=== PATIENT | female | born 2000 | race American Indian/Alaskan Native ===

== ENCOUNTER 2020-05-10 22:07 | Emergency (ER) | payer OTHER ==
[2020-05-11 00:55] LABS: Basophils # (Auto) 0.1 K/mm3 (0.0-0.1); Basophils % (Auto) 0.4 % (0.0-1.8); Eosinophils # (Auto) 0.1 K/mm3 (0.0-0.4); Eosinophils % (Auto) 1.1 % (0.0-4.3); Hematocrit 41.3 % (30.3-42.9); Hemoglobin 13.7 gm/dl (10.1-14.3); Lymphocytes # (Auto) 2.1 K/mm3 (1.2-5.4); Lymphocytes % (Auto) 18.4 % (13.4-35.0); Mean Corpuscular HGB Conc 33 % (30-34); Mean Corpuscular Volume 87 fl (79-97); Monocytes # (Auto) 0.6 K/mm3 (0.0-0.8); Monocytes % (Auto) 5.3 % (0.0-7.3); Platelet Count 374 K/mm3 (140-440); Red Blood Count 4.76 M/mm3 (3.65-5.03); Red Cell Distribution Width 14.8 % (13.2-15.2)
[2020-05-11 01:15] LABS: Alanine Aminotransferase 17 units/L (7-56); Albumin 4.2 g/dL (3.9-5); BUN/Creatinine Ratio 15; Blood Urea Nitrogen 12 mg/dL (7-17); Hemolysis Index 5
[2020-05-11 01:59] LABS: Bacteria,Urine 2+ /HPF (Negative); Bilirubin,Urine NEG (Negative); Blood,Urine LG (Negative); Color,Urine Yellow (Yellow); Mucus,Urine 3+ /HPF; Protein,Urine <15 mg/dL mg/dL (Negative); Urobilinogen,Urine < 2.0 mg/dL (<2.0)
--- NOTE | 2020-05-11 02:52 | Emergency Department Report ---
ED General Adult HPI - General Chief complaint: Abdominal Pain Stated complaint: ABD PAIN PUI?: No Time Seen by Provider: 05/11/20 02:29 Source: patient, EMS, RN notes reviewed Mode of arrival: Ambulatory Limitations: No Limitations - History of Present Illness Initial comments: The patient was evaluated in the emergency department for symptoms described in the history of present illness. He/she was evaluated in the context of the global COVID-19 pandemic, which necessitated consideration that the patient might be at risk for infection with the virus that causes COVID-19. Institutional protocols and algorithms that pertain to the evaluation of patients at risk for COVID-19 are in a state of rapid change based on infor mation released by regulatory bodies including the CDC and federal and state organizations. These policies and algorithms were followed during the patient's care in the emergency department. Please note that these policies, procedures and recommendations changed on a rapid basis. The patient is a 19-year-old obese female. She is not known to myself previously. She states that she is not . The patient reports that she has been feeling anxious and stressed recently, and has thus been consuming quite a bit of heavy, spicy, fatty foods. She was eating chili, ice cream, and cookie dough, earlier on this evening, when she developed severe right upper quadrant abdominal pain, with nausea, vomiting, now resolved. The patient states she is not had this in the past. She states she is currently on her menstruation. She denies dysuria. She denies headache, neck pain, chest pain, she has no abdominal pain at this time, she has no shortness of breath, she denies history of gonorrhea, chlamydia, STDs, vaginal discharge. She does not have a history of renal colic or biliary colic that she is aware of. She states all of her symptoms are resolved at this point in time. She states that now, she has no complaints. She declines pain medication, nausea medication. -: Sudden Location: abdomen Radiation: back Quality: stabbing, aching Consistency: now resolved Improves with: none Worsens with: eating - Related Data Previous Rx's Medication Instructions Recorded Last Taken Type Acetaminophen [Non-Aspirin Extra 500 mg PO Q6HR PRN #30 tablet 05/11/20 Unknown Rx Strength] Famotidine [Pepcid] 20 mg PO BID #60 tablet 05/11/20 Unknown Rx Ondansetron [Zofran Odt] 4 mg PO Q8HR PRN #20 tab.rapdis 05/11/20 Unknown Rx Allergies Allergy/AdvReac Type Severity Reaction Status Date / Time No Known Allergies Allergy Unverified 05/11/20 00:02 ED Review of Systems ROS: Stated complaint: ABD PAIN Other details as noted in HPI Constitutional: denies: fever, malaise Eyes: denies: eye discharge ENT: denies: congestion Respiratory: denies: shortness of breath Cardiovascular: denies: chest pain Gastrointestinal: abdominal pain, nausea, vomiting Genitourinary: denies: dysuria, frequency Musculoskeletal: back pain (Chronic paralumbar back pain) Neurological: denies: weakness Psychiatric: anxiety Hematological/Lymphatic: denies: easy bleeding ED Past Medical Hx - Past Medical History Previous Medical History?: No - Surgical History Past Surgical History?: Yes Additional Surgical History: Tonsilectomy - Social History Smoking Status: Never Smoker - Medications Home Medications: Home Medications Medication Instructions Recorded Confirmed Last Taken Type Acetaminophen [Non-Aspirin Extra 500 mg PO Q6HR PRN #30 tablet 05/11/20 Unknown Rx Strength] Famotidine [Pepcid] 20 mg PO BID #60 tablet 05/11/20 Unknown Rx Ondansetron [Zofran Odt] 4 mg PO Q8HR PRN #20 tab.rapdis 05/11/20 Unknown Rx ED Physical Exam - General Limitations: No Limitations General appearance: alert, anxious, obese - Head Head exam: Present: atraumatic, normocephalic - Eye Eye exam: Present: normal appearance, EOMI. Absent: nystagmus - ENT ENT exam: Present: normal exam, normal orophraynx, mucous membranes moist, normal external ear exam - Neck Neck exam: Present: normal inspection, full ROM. Absent: tenderness, meningismus - Respiratory Respiratory exam: Present: normal lung sounds bilaterally. Absent: respiratory distress, wheezes, rales, rhonchi, stridor - Cardiovascular Cardiovascular Exam: Present: regular rate, normal rhythm, normal heart sounds. Absent: bradycardia, tachycardia, irregular rhythm, systolic murmur, diastolic murmur, rubs, gallop - GI/Abdominal GI/Abdominal exam: Present: soft, tenderness (There is right upper quadrant tenderness to deep palpation. There is a negative Hay sign of the right upper quadrant). Absent: distended, guarding, rebound, rigid, pulsatile mass - Extremities Exam Extremities exam: Present: normal inspection, full ROM, other (2+ pulses noted in the bilateral upper and lower extremities. There is no palpable cord. negative Homans sign. Muscular compartments are soft. The pelvis is stable.). Absent: pedal edema, calf tenderness - Back Exam Back exam: Present: normal inspection, full ROM. Absent: tenderness, CVA tenderness (R), CVA tenderness (L), paraspinal tenderness, vertebral tenderness - Neurological Exam Neurological exam: Present: alert, normal gait, other (No facial droop. Tongue midline. Extraocular movements intact bilaterally. Facial sensation intact to light touch in V1, V2, V3 distribution bilaterally. 5 and a 5 strength in 4 extremities. Sensation intact to light touch in 4 extremities.). Absent: motor sensory deficit - Psychiatric Psychiatric exam: Present: normal affect, normal mood - Skin Skin exam: Present: warm, dry, intact, normal color. Absent: rash ED Course Vital Signs 05/11/20 05/11/20 05/11/20 00:06 03:02 03:04 Temperature 98.2 F 99.1 F Pulse Rate 101 H 108 H Respiratory 17 20 Rate Blood Pressure 154/74 122/60 Blood Pressure 122/60 [Right] O2 Sat by Pulse 99 98 Oximetry 05/11/20 05/11/20 05/11/20 03:15 03:30 03:45 Temperature Pulse Rate Respiratory Rate Blood Pressure 124/68 86/41 149/44 Blood Pressure [Right] O2 Sat by Pulse 100 93 Oximetry 05/11/20 04:00 Temperature Pulse Rate Respiratory Rate Blood Pressure 129/71 Blood Pressure [Right] O2 Sat by Pulse 99 Oximetry - Reevaluation(s) Reevaluation #1: 05/11/20 04:10 Differential diagnosis, including but not limited to: Biliary colic, renal colic Assessment and plan: 19-year-old obese female, with resolved tachycardia, with right upper quadrant abdominal pain, with associated nausea, vomiting, now resolved, in the context of eating heavy/fatty foods, with mild right upper quadrant tenderness on deep palpation, otherwise, symptoms have resolved at this time. No irritative or obstructive urinary symptoms, no dysuria, initial urinalysis contaminated, repeat urinalysis not consistent with infectious pathology. Right upper quadrant ultrasound, renal ultrasound pending. I suspect biliary colic is the most likely diagnosis. Patient and I discussed the need to avoid heavy and spicy foods, fatty foods, diet, exercise, weight loss. Reevaluation #2: 05/11/20 04:56 The patient is reassessed. Upon entering the room, I see that she is sleeping comfortably, and in no acute distress. I awake the patient, her abdomen is soft on repeat exam, and she is noted to have consumed soda/maritza francesco. I discussed the patient's findings with the patient. We have advised diet and lifestyle modifications. She verbalizes understanding. Patient suitable for discharge at this point in time I did note that the patient was snoring quite loudly when I enter the room, and she is morbidly obese. She did not desaturate. However, she may have a component of sleep apnea. I will instruct her to follow-up with outpatient primary care/pulmonary for further evaluation heart rate at the time of discharge 99 to 101 bpm. 05/11/20 04:57 ED Medical Decision Making - Lab Data Result diagrams: 05/11/20 00:25 05/11/20 00:25 Vital Signs 05/11/20 05/11/20 00:06 03:04 Temperature 98.2 F 99.1 F Pulse Rate 101 H 108 H Respiratory 17 20 Rate Blood Pressure 154/74 Blood Pressure 122/60 [Right] O2 Sat by Pulse 99 98 Oximetry Lab Results 05/11/20 05/11/20 05/11/20 Range/Units 00:25 00:25 00:25 WBC 11.4 H (4.5-11.0) K/mm3 RBC 4.76 (3.65-5.03) M/mm3 Hgb 13.7 (10.1-14.3) gm/dl Hct 41.3 (30.3-42.9) % MCV 87 (79-97) fl MCH 29 (28-32) pg MCHC 33 (30-34) % RDW 14.8 (13.2-15.2) % Plt Count 374 (140-440) K/mm3 Lymph % (Auto) 18.4 (13.4-35.0) % [place] % (Auto) 5.3 (0.0-7.3) % Eos % (Auto) 1.1 (0.0-4.3) % Baso % (Auto) 0.4 (0.0-1.8) % Lymph # 2.1 (1.2-5.4) K/mm3 [place] # 0.6 (0.0-0.8) K/mm3 Eos # 0.1 (0.0-0.4) K/mm3 Baso # 0.1 (0.0-0.1) K/mm3 Seg Neutrophils % 74.8 H (40.0-70.0) % Seg Neutrophils # 8.5 H (1.8-7.7) K/mm3 Sodium 139 (137-145) mmol/L Potassium 3.9 (3.6-5.0) mmol/L Chloride 101.1 (98-107) mmol/L Carbon Dioxide 25 (22-30) mmol/L Anion Gap 17 mmol/L BUN 12 (7-17) mg/dL Creatinine 0.8 (0.6-1.2) mg/dL Estimated GFR > 60 ml/min BUN/Creatinine Ratio 15 % Glucose 115 H (65-100) mg/dL Calcium 10.0 (8.4-10.2) mg/dL Magnesium (1.7-2.3) mg/dL Total Bilirubin < 0.20 (0.1-1.2) mg/dL AST 20 (5-40) units/L ALT 17 (7-56) units/L Alkaline Phosphatase 82 (35-129) units/L Total Creatine Kinase (30-135) units/L Total Protein 8.4 H (6.3-8.2) g/dL Albumin 4.2 (3.9-5) g/dL Albumin/Globulin Ratio 1.0 % Lipase 26 (13-60) units/L HCG, Qual Negative (Negative) Urine Color (Yellow) Urine Turbidity (Clear) Urine pH (5.0-7.0) Ur Specific Sears (1.003-1.030) Urine Protein (Negative) mg/dL Urine Glucose (UA) (Negative) mg/dL Urine Ketones (Negative) mg/dL Urine Blood (Negative) Urine Nitrite (Negative) Urine Bilirubin (Negative) Urine Urobilinogen (<2.0) mg/dL Ur Leukocyte Esterase (Negative) Urine WBC (Auto) (0.0-6.0) /HPF Urine RBC (Auto) (0.0-6.0) /HPF U Epithel Cells (Auto) (0-13.0) /HPF Urine Bacteria (Auto) (Negative) /HPF Urine Mucus /HPF 05/11/20 05/11/20 Range/Units 01:15 02:50 WBC (4.5-11.0) K/mm3 RBC (3.65-5.03) M/mm3 Hgb (10.1-14.3) gm/dl Hct (30.3-42.9) % MCV (79-97) fl MCH (28-32) pg MCHC (30-34) % RDW (13.2-15.2) % Plt Count (140-440) K/mm3 Lymph % (Auto) (13.4-35.0) % [place] % (Auto) (0.0-7.3) % Eos % (Auto) (0.0-4.3) % Baso % (Auto) (0.0-1.8) % Lymph # (1.2-5.4) K/mm3 [place] # (0.0-0.8) K/mm3 Eos # (0.0-0.4) K/mm3 Baso # (0.0-0.1) K/mm3 Seg Neutrophils % (40.0-70.0) % Seg Neutrophils # (1.8-7.7) K/mm3 Sodium (137-145) mmol/L Potassium (3.6-5.0) mmol/L Chloride (98-107) mmol/L Carbon Dioxide (22-30) mmol/L Anion Gap mmol/L BUN (7-17) mg/dL Creatinine (0.6-1.2) mg/dL Estimated GFR ml/min BUN/Creatinine Ratio % Glucose (65-100) mg/dL Calcium (8.4-10.2) mg/dL Magnesium 2.10 (1.7-2.3) mg/dL Total Bilirubin (0.1-1.2) mg/dL AST (5-40) units/L ALT (7-56) units/L Alkaline Phosphatase (35-129) units/L Total Creatine Kinase 157 H (30-135) units/L Total Protein (6.3-8.2) g/dL Albumin (3.9-5) g/dL Albumin/Globulin Ratio % Lipase (13-60) units/L HCG, Qual (Negative) Urine Color Yellow (Yellow) Urine Turbidity Slightly-cloudy (Clear) Urine pH 6.0 (5.0-7.0) Ur Specific Sears 1.028 (1.003-1.030) Urine Protein <15 mg/dl (Negative) mg/dL Urine Glucose (UA) Neg (Negative) mg/dL Urine Ketones Neg (Negative) mg/dL Urine Blood Lg (Negative) Urine Nitrite Neg (Negative) Urine Bilirubin Neg (Negative) Urine Urobilinogen < 2.0 (<2.0) mg/dL Ur Leukocyte Esterase Tr (Negative) Urine WBC (Auto) 14.0 H (0.0-6.0) /HPF Urine RBC (Auto) 3.0 (0.0-6.0) /HPF U Epithel Cells (Auto) 14.0 H (0-13.0) /HPF Urine Bacteria (Auto) 2+ (Negative) /HPF Urine Mucus 3+ /HPF - EKG Data -: EKG Interpreted by Tn EKG shows normal: sinus rhythm Rate: tachycardia - EKG Data When compared to previous EKG there are: previous EKG unavailable 05/11/20 04:09 No prior EKGs available for comparison. Sinus rhythm, tachycardia, 100 bpm, normal axis, QTC 440 ms, not a STEMI. - Radiology Data Radiology results: pending, report reviewed, image reviewed Print Report Referring Physician: ALESIA ARROYO Patient Name: CAMILA SEVILLA Date of : 2000 Sex: Female Report Date: 2020-05-11 Report Status: Finalized Findings [facility] [address] [place] [address] Ultrasound Report Signed Patient: CAMILA SEVILLA MR#: [id number] : 2000 Acct:[id number] Age/Sex: 19 / F ADM Date: 05/10/20 Loc: ED Attending Dr: Ordering Physician: ALESIA ARROYO MD Date of Service: 05/11/20 Procedure(s): US renal RT Accession Number(s): [id number] cc: ALESIA ARROYO MD RIGHT RENAL ULTRASOUND HISTORY: Flank pain. FINDINGS: Right kidney measures 9.9 cm. Cortical thickness and echogenicity is normal. Negative for mass or obstruction. The bladder is unremarkable. IMPRESSION: Unremarkable right renal ultrasound. Signer Name: Damien Altman MD Signed: 05/11/2020 4:22 AM Workstation Name: [id number] Transcribed By: ELISA Dictated By: Damien Altman MD Electronically Authenticated By: Damien Altman MD Signed Date/Time: 05/11/20421 DD/ 0 TD/TT: Print Report Referring Physician: ALESIA ARROYO Patient Name: CAMILA SEVILLA Date of : 2000 Sex: Female Report Date: 2020-05-11 Report Status: [place] [address] Ultrasound Report Signed Patient: CAMILA SEVILLA MR#: [id number] : 2000 Acct:[id number] Age/Sex: 19 / F ADM Date: 05/10/20 Loc: ED Attending Dr: Ordering Physician: ALESIA ARROYO MD Date of Service: 05/11/20 Procedure(s): US abdomen limited Accession Number(s): [id number] cc: ALESIA ARROYO MD ULTRASOUND ABDOMEN, LIMITED (RIGHT UPPER QUADRANT) INDICATION: ruq pain. COMPARISON: None available. FINDINGS: Pancreas: Visualized portion shows no significant abnormality. Liver: Mild increased echogenicity. Gallbladder: Partially contracted. Bile ducts: Normal. Common Bile Duct measures 2 mm. Free fluid: None. Additional Findings: None. IMPRESSION: 1. Suspected fatty infiltration the liver. 2. Partially contracted gallbladder without stones or biliary dilatation. Signer Name: Damien Altman MD Signed: 05/11/2020 4:21 AM Workstation Name: [id number] Transcribed By: ELISA Dictated By: Damien Altman MD Electronically Authenticated By: Damien Altamn MD Signed Date/Time: 05/11/20420 DD/ 9 Critical care attestation.: If time is entered above; I have spent that time in minutes in the direct care of this critically ill patient, excluding procedure time. ED Disposition Clinical Impression: Abdominal pain, Obesity, Snoring Disposition: DC-01 TO HOME OR SELFCARE Is pt being admited?: No Does the pt Need Aspirin: No Condition: Stable Instructions: Biliary Colic (ED), Snoring (ED), Obesity (ED) Additional Instructions: Recommend that the patient avoid consumption of Motrin, ibuprofen, Naprosyn, Aleve, heavy, spicy foods, alcohol. Recommend that patient avoid consumption of complex carbohydrates, sugar, fatty foods, rich foods. Recommend that patient exercise, lose weight, and consume plenty of fiber, v egetables, and lean protein. We recommend that the patient follow-up with her primary care doctor, such as Dr. Taylor, within the next 7 days. Patient was found to be snoring in the emergency room, and she may have a component of sleep apnea. The patient should follow-up with a primary care do ctor, or pulmonology/sleep specialist for this, within the next 4 to 6 weeks, such as Dr. Hgigins Recommend that patient not drink soda, drink 4 to 6 cups of water per day indefinitely. Please return to the emergency room right away with new pain, worsening pain, migration of pain, projectile vomiting, change in mental status, confusion, inability to tolerate liquid feeds, new, worsened or different symptoms not present on the initial emergency room evaluation Referrals: JEB TAYLOR MD [Staff Physician] - 3-5 Days DONAVAN HIGGINS MD [Staff Physician] - as needed
[2020-05-11 03:40] LABS: Bilirubin,Urine NEG (Negative); Blood,Urine MOD (Negative); Color,Urine Yellow (Yellow); Mucus,Urine FEW /HPF; Protein,Urine <15 mg/dL mg/dL (Negative); Urobilinogen,Urine < 2.0 mg/dL (<2.0)
[2020-05-11] MEDS ORDERED: ACETAMINOPHEN 500 MG TAB PO ONE (04:09)
--- NOTE | 2020-05-11 04:25 | Ultrasound Report ---
ULTRASOUND ABDOMEN, LIMITED (RIGHT UPPER QUADRANT) INDICATION: ruq pain. COMPARISON: None available. FINDINGS: Pancreas: Visualized portion shows no significant abnormality. Liver: Mild increased echogenicity. Gallbladder: Partially contracted. Bile ducts: Normal. Common Bile Duct measures 2 mm. Free fluid: None. Additional Findings: None. IMPRESSION: 1. Suspected fatty infiltration the liver. 2. Partially contracted gallbladder without stones or biliary dilatation. Signer Name: Damien Altman MD Signed: 05/11/2020 4:21 AM Workstation Name: [id number]
--- NOTE | 2020-05-11 04:26 | Ultrasound Report ---
RIGHT RENAL ULTRASOUND HISTORY: Flank pain. FINDINGS: Right kidney measures 9.9 cm. Cortical thickness and echogenicity is normal. Negative for m ass or obstruction. The bladder is unremarkable. IMPRESSION: Unremarkable right renal ultrasound. Signer Name: Damien Altman MD Signed: 05/11/2020 4:22 AM Workstation Name: [id number]
[2020-05-11 06:09] VITALS: BP 109/55
== END 2020-05-11 06:00 | disposition home or self-care (01) ==
LOC: ED 22:07
DX: E66.8 Other obesity (principal); R06.83 Snoring; R10.11 Right upper quadrant pain
CPT/HCPCS: 36415; 76705; 76775; 80053; 81001; 82550; 83690; 83735; 84703; 85025; 87076; 87086; 87186; 93005